=== PATIENT | male | born 1975 | race Caucasian/White ===

== ENCOUNTER 2018-05-18 09:21 | Inpatient (IN) | payer OTHER ==
[~2018-05-18] VITALS: Ht 180.3 cm; Wt 136.1 kg
[2018-05-18] MEDS ORDERED: FUROSEMIDE INJ 10 MG/ML 2 ML VIAL ONE (09:47)
[2018-05-18] MEDS ORDERED: DILTIAZEM HCL VIAL 5 ML ONE (09:47)
[2018-05-18] MEDS ORDERED: FUROSEMIDE INJ 10 MG/ML 4 ML VIAL ONE (09:47)
[2018-05-18] MEDS ORDERED: ASPIRIN 81 MG CHEW TAB PO STA (09:49)
[2018-05-18] MEDS ORDERED: NITROGLYCERIN 2% OINT 1 GM PKT TOP STA (09:49)
[2018-05-18] MEDS ORDERED: DILTIAZEM HCL 5 MG/ML 5 ML VIAL IV ONE (10:00)
[2018-05-18] MEDS ORDERED: ASPIRIN 81 MG CHEW TAB PO ONE ×2 (10:00→12:00)
[2018-05-18] MEDS ORDERED: FUROSEMIDE INJ 10 MG/ML 4 ML VIAL IV ONE (10:00)
[2018-05-18 10:04] LABS: BASOPHILS # (AUTO) 0.1 (0.0-0.1); BASOPHILS % 0.6 % (0.0-1.0); EOSINOPHILS # (AUTO) 0.2 (0.0-0.4); EOSINOPHILS % 2.1 % (0.0-6.0); HEMATOCRIT 40.6 % (38.2-49.6); HEMOGLOBIN 13.3 g/dL (14.0-18.0); LYMPHOCYTES # (AUTO) 1.8 (1.0-3.2); LYMPHOCYTES % 18.7 % (18.0-39.1); MEAN CORPUSCULAR HEMOGLOBIN 27.9 pg (28-32); MEAN CORPUSCULAR HGB CONC 32.8 g/dL (31-35); MEAN CORPUSCULAR VOLUME 85.3 fL (81-99); MONOCYTES # (AUTO) 0.6 (0.2-0.8); MONOCYTES % 6.6 % (4.4-11.3); NEUTROPHILS # (AUTO) 6.7 (2.1-6.9); NEUTROPHILS % 71.6 % (38.7-80.0); PLATELET COUNT 244 x10e3/uL (140-360); RED BLOOD COUNT 4.76 x10e6/uL (4.3-5.7); RED CELL DISTRIBUTION WIDTH 14.9 % (11.7-14.4)
[2018-05-18 10:07] LABS: INR 0.95; PROTHROMBIN TIME 13.6 seconds (11.9-14.5)
[2018-05-18 10:17] LABS: ALANINE AMINOTRANSFERASE 37 IU/L (0-55); ALBUMIN 3.7 g/dL (3.5-5.0); ALBUMIN/GLOBULIN RATIO 1.1 (0.8-2.0); ALKALINE PHOSPHATASE 57 IU/L (40-150); ANION GAP 15.9 mmol/L (8-16); BLOOD UREA NITROGEN 11 mg/dL (7-26); BUN/CREATININE RATIO 11 (6-25); CALCIUM 9.2 mg/dL (8.4-10.2); CARBON DIOXIDE 22 mmol/L (22-29); CHLORIDE 107 mmol/L (98-107); CREATINE KINASE 303 IU/L (30-200); CREATININE, SERUM 0.97 mg/dL (0.72-1.25); EST GLOMERULAR FILTRATION RATE > 60 ML/MIN (60-); GLUCOSE 106 mg/dL (74-118); POTASSIUM 3.9 mmol/L (3.5-5.1); SODIUM 141 mmol/L (136-145)
[2018-05-18 10:45] LABS: BILIRUBIN,URINE NEGATIVE (NEGATIVE); CLARITY,URINE SL CLOUDY (CLEAR); COLOR,URINE YELLOW (YELLOW); KETONES,URINE NEGATIVE (NEGATIVE); LEUKOCYTE ESTERASE ,URINE NEGATIVE (NEGATIVE); NITRITE,URINE NEGATIVE (NEGATIVE); PROTEIN,URINE DIPSTICK 1+ (NEGATIVE); URINE UROBILINOGEN 0.2 mg/dL (0.2 - 1)
[2018-05-18 11:03] LABS: EPITHELIAL CELLS,URINE RARE /LPF
[2018-05-18 11:04] LABS: HYALINE CASTS 0-1 (0-1)
[2018-05-18 11:11] LABS: FREE THYROXINE INDEX 1.8981 (1.4-3.8); THYROID STIMULATING HORMONE 5.772 uIU/mL (0.350-4.940)
[2018-05-18] MEDS ORDERED: LABETALOL HCL 5 MG/ML 20ML VIAL IV STA (11:48)
--- NOTE | 2018-05-18 12:37 | Diagnostic Imaging Report ---
PROCEDURE: A single AP view of the chest. COMPARISON: None. INDICATIONS: SHORTNESS OF BREATH FINDINGS: Lines/tubes: None. Lungs: Low lung volumes. There is an ovoid opacity at the right lung base. Mild patchy bibasilar opacities, likely atelectasis. No evidence of pulmonary edema. Pleura: There is no pleural effusion or pneumothorax. Heart and mediastinum: The cardiomediastinal silhouette is unremarkable. Bones: No acute bony abnormality. IMPRESSION: Ovoid opacity at the right lung base is indeterminate. While this may represent an unusual appearance of pericardial fat or consolidation, an underlying lung mass cannot be excluded by radiograph. A chest CT is suggested for further evaluation. Dictated by: BRUCE BENJAMIN M.D. on 05/18/2018 at 11:10 Electronically approved by: BRUCE BENJAMIN M.D. on 05/18/2018 at 11:10
[2018-05-18] MEDS ORDERED: IOPAMIDOL 370 MG/ML 200 ML INFUS..BTL INJ ONE (14:07)
[2018-05-18] MEDS ORDERED: SODIUM CHLORIDE 0.9% 50ML 50 ML ONE (14:07)
--- NOTE | 2018-05-18 14:45 | Diagnostic Imaging Report ---
EXAM: CT Chest WITH contrast 05/18/2018 12:24 PM INDICATION:Query mass COMPARISON: Chest radiograph 05/18/2018. TECHNIQUE: Chest was scanned utilizing a multidetector helical scanner from the lung apex through the level of the adrenal glands without administration of IV contrast. Coronal and sagittal reformations were obtained. Routine protocol was performed. IV CONTRAST: 100 mL of Isovue 370 RADIATION DOSE: Total DLP: 503 mGy*cm Estimated effective dose: (DLP x 0.014 x size factor) mSv COMPLICATIONS: None FINDINGS: LINES/ TUBES: None. LUNGS AND AIRWAYS: The central airways are patent. There are lower lung zone predominant bilateral ground glass opacities with areas of intralobular septal thickening. Scattered dependent atelectatic changes. Motion artifact limits evaluation for lung nodule. Scattered 2 to 3 mm subpleural nodular opacities. Mosaic attenuation of the lung bases. PLEURA: Small bilateral pleural effusions. HEART AND MEDIASTINUM: Corresponding to the mass noted on prior chest radiograph, there is a 6.7 x 5.3 x 5.4 cm (AP x TV x SI) homogeneous, well-circumscribed fluid attenuation round mass with peripheral calcification. The lesion is abutting the right aspect of the pericardium. The thyroid gland is partially obscured by streak artifact but otherwise unremarkable. No mediastinal, hilar or axillary lymphadenopathy. No evidence pericardial effusion. There is left atrial enlargement. Coronary atherosclerosis. UPPER ABDOMEN: Limited non-contrast views of the upper abdomen show no abnormality within the visualized liver, spleen, or adrenal glands. BONES AND SOFT TISSUES: No acute bony findings or suspicious lytic or blastic lesions. IMPRESSION: Simple appearing right pericardial cyst measuring up to 6.7 cm, which may be congenital or reflect sequela of prior pericarditis. Findings of mild pulmonary interstitial edema and small bilateral pleural effusions. Enlarged left atrium. Signed by: Dr. Susi Munguia MD on 05/18/2018 2:41 PM
[2018-05-18] MEDS: METOPROLOL TARTRATE 25 MG TAB PO SCH (16:22)
[2018-05-18 16:35] VITALS: BP 119/99
[2018-05-18 16:44] VITALS: BP 132/88
[2018-05-18 16:50] VITALS: BP 132/88
[2018-05-18 19:10] LABS: CREATINE KINASE MB 3.2 ng/mL (0-5.0)
[2018-05-18 20:00] VITALS: BP 135/96
[2018-05-19] VITALS (7 sets, daily range): BP systolic 121–136; BP diastolic 79–98
[2018-05-19 05:53] LABS: BASOPHILS # (AUTO) 0.1 (0.0-0.1); BASOPHILS % 0.5 % (0.0-1.0); EOSINOPHILS # (AUTO) 0.3 (0.0-0.4); EOSINOPHILS % 2.5 % (0.0-6.0); HEMATOCRIT 37.7 % (38.2-49.6); HEMOGLOBIN 12.5 g/dL (14.0-18.0); LYMPHOCYTES # (AUTO) 1.6 (1.0-3.2); LYMPHOCYTES % 14.9 % (18.0-39.1); MEAN CORPUSCULAR HEMOGLOBIN 27.9 pg (28-32); MEAN CORPUSCULAR HGB CONC 33.2 g/dL (31-35); MEAN CORPUSCULAR VOLUME 84.2 fL (81-99); MONOCYTES # (AUTO) 0.7 (0.2-0.8); MONOCYTES % 6.6 % (4.4-11.3); NEUTROPHILS # (AUTO) 7.8 (2.1-6.9); NEUTROPHILS % 75.1 % (38.7-80.0); PLATELET COUNT 220 x10e3/uL (140-360); RED BLOOD COUNT 4.48 x10e6/uL (4.3-5.7)
[2018-05-19 06:15] LABS: ALANINE AMINOTRANSFERASE 33 IU/L (0-55); ALBUMIN 3.4 g/dL (3.5-5.0); ALBUMIN/GLOBULIN RATIO 1.2 (0.8-2.0); ALKALINE PHOSPHATASE 53 IU/L (40-150); ANION GAP 12.3 mmol/L (8-16); BLOOD UREA NITROGEN 12 mg/dL (7-26); BUN/CREATININE RATIO 13 (6-25); CALCIUM 9.3 mg/dL (8.4-10.2); CARBON DIOXIDE 31 mmol/L (22-29); CHLORIDE 104 mmol/L (98-107); CHOL/HDL RATIO 5.1 (3.9-4.7); CHOLESTEROL 163 MD/DL (0-199); CREATINE KINASE 186 IU/L (30-200); EST GLOMERULAR FILTRATION RATE > 60 ML/MIN (60-); GLUCOSE 97 mg/dL (74-118); HDL CHOLESTEROL 32 MG/DL (40-60); LDL CHOLESTEROL 109 MG/DL (60-130); POTASSIUM 3.3 mmol/L (3.5-5.1); SODIUM 144 mmol/L (136-145); TRIGLYCERIDES 111 MG/DL (0-149)
[2018-05-19] MEDS ORDERED: POTASSIUM CHLORIDE 20 MEQ TAB CR PO STA (07:18)
[2018-05-19] MEDS: FAMOTIDINE 20 MG TAB PO SCH ×2 (08:53→16:36)
[2018-05-19] MEDS: ASPIRIN 81 MG ENTERIC COATED PO SCH (08:53)
[2018-05-19] MEDS: METOPROLOL TARTRATE 25 MG TAB PO SCH ×2 (08:53→16:37)
[2018-05-19] MEDS ORDERED: FUROSEMIDE INJ 10 MG/ML 4 ML VIAL IV SCH (09:00)
[2018-05-19] MEDS: LISINOPRIL 10 MG TAB PO SCH (09:20)
--- NOTE | 2018-05-19 10:48 | History and Physical ---
PRIMARY CARE PHYSICIAN: None. CHIEF COMPLAINT: Shortness of breath. HISTORY OF PRESENT ILLNESS: This is a 43-year-old man with a family history of congestive heart failure, but no personal history of heart failure, now developing leg swelling. He states that he is now developing shortness of breath for the past 3 weeks. He denies any chest pain. He does have some dizziness with walking and bending. 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 He admits to left leg swelling for the past 2 years and right leg swelling for the last 3 weeks. Here, he was found to have atrial fibrillation with rapid ventricular response, mild acute rhabdomyolysis, bilateral pleural effusions, and a left ventricular ejection fraction of 15-20%. He is admitted for further evaluation and management. PAST MEDICAL HISTORY: Hypertension. PAST SURGICAL HISTORY: None. ALLERGIES: PER ELECTRONIC MEDICAL RECORD. FAMILY HISTORY: Congestive heart failure. SOCIAL HISTORY: Patient is , has 3 children. No alcohol, illicit, or cigarette. 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 MEDICATIONS: Per electronic medical record. REVIEW OF SYSTEMS: Denies any fevers, chills, sweats, nausea, vomiting, diarrhea, headache, back pain, or vision changes. Denies any leg pain. PHYSICAL EXAMINATION VITAL SIGNS: Have been reviewed. GENERAL: A tired-appearing man, resting in bed. HEENT: Anicteric. Pupils react to light. No oral lesions. CARDIOVASCULAR: Normal S1, S2. Irregular rhythm. LUNGS: Moderate breath sounds, slightly reduced at the bases. ABDOMEN: Soft, nontender, nondistended. EXTREMITIES: With 2+ leg edema bilaterally. SKIN: Dry. PSYCHIATRIC: Flat affect. NEUROLOGIC: Alert and oriented x3. Moves all extremities. LABS: Reviewed. ASSESSMENT: A 43-year-old man with 1. Atrial fibrillation with rapid ventricular response. 2. Bilateral pleural effusion. 3. Pulmonary edema. 4. Acute systolic congestive heart failure with left ventricular ejection fraction of 15-20%. 5. Peripheral edema. 6. Morbid obesity. 7. Acute rhabdomyolysis. 8. Hypokalemia. 9. Right pericardial cyst. 10. Subclinical hypothyroidism. PLAN 1. Continue Lasix. 2. Replace potassium. 3. Cardiology evaluation, will need left heart catheterization at some point to evaluate for coronary artery disease in the setting of severe systolic congestive heart failure. 4. Rate control. 5. Consider anticoagulation in the setting of AFib, will defer to cardiology. 6. Continue diuresis and replacement of potassium. 7. Screen for diabetes and obtain a lipid panel. 8. Start Lovenox and Pepcid for prophylaxis. 9. Disposition, follow up cardiology recommendations. Job#: [id number] RDORIGO
[2018-05-19] MEDS: FUROSEMIDE INJ 10 MG/ML 4 ML VIAL IV SCH (16:36)
[2018-05-19] MEDS: POTASSIUM CHLORIDE 20 MEQ TAB CR PO SCH (16:37)
[2018-05-19] MEDS ORDERED: ENOXAPARIN SOD INJ 40 MG/0.4 ML SYR SC SCH (17:00)
--- NOTE | 2018-05-19 17:59 | Consultation ---
DATE OF CONSULTATION: May 19, 2018 REQUESTING PHYSICIAN: Dr. Talavera. REASON FOR CONSULTATION: CHF. HISTORY OF PRESENT ILLNESS: Mr. Christensen is a 43-year-old gentleman with past medical history as listed below. Apparently, he has been getting short of shortness for the last 2 weeks with some leg swelling. I think the shortness of breath might be going on even before that, but pretty much noticed it about 2 weeks back. He walks less than half a block, he gets short-winded. Before that, he was able to do whatever he wanted to. He states that he has some vague discomfort in his lower sternal region. He was noted to be in atrial fibrillation with rapid ventricular rate and was admitted to the hospital. He denies any abdominal pain, vomiting, or diarrhea. Reportedly, his mother had atrial fibrillation. REVIEW OF SYSTEMS CONSTITUTIONAL: He has some fatigue and weakness. HEENT: No headache, blurring of vision, seizure, or syncope. CARDIOVASCULAR: Chest discomfort, has dyspnea, has leg edema, and some orthopnea. RESPIRATORY: No cough, fever, or expectoration. GI: No abdominal pain, vomiting, or diarrhea. : No dysuria, frequency, or incontinence. ALLERGIES: PENICILLIN. MEDICATIONS: See list. PAST MEDICAL HISTORY: History of hypertension. SOCIAL HISTORY: Does not smoke or drink. FAMILY HISTORY: His mother has atrial fibrillation. His grandfather had strokes. PHYSICAL EXAMINATION GENERAL: Obese gentleman, awake and alert, not in any obvious distress. VITAL SIGNS: Heart rate 109, blood pressure 136/96, respiratory rate 18, and temperature 97.5. HEENT: Atraumatic. NECK: No JVD, bruits, thyromegaly, or lymphadenopathy. CARDIOVASCULAR: First and second heart sounds heard. No murmurs, rubs, or gallops appreciated. CHEST: Decreased air entry at the bases. No adventitious sounds appreciated. ABDOMEN: Obese, nontender. EXTREMITIES: He has 2 to 3+ leg edema. LABS: EKG shows atrial fibrillation, 137 beats per minute, normal axis. He has incomplete right bundle branch block, nonspecific ST-T changes. Sodium is 144, potassium 3.3, chloride is 104, bicarb is 31, BUN is 12, creatinine 0.9. Hemoglobin is 12.5, hematocrit 37.7, platelets 220, white count is 10.4. IMPRESSION 1. Atrial fibrillation with rapid ventricular rate. 2. Congestive heart failure. 3. Obesity. 4. Hypertension. PLAN 1. Continue with IV diuresis. 2. Patient has been started on metoprolol. We will increase his dose. 3. Patient is on Lovenox, increase 1 mg per kilo q.12. 4. Echocardiogram shows severe LV dysfunction. 5. Continue the THIAGO inhibitors and beta blockers. 6. Discussed with patient about further cardiac workup including cardiac catheterization. He has been explained of the procedure, risks, benefits, complications, and alternatives. He understands and agrees to it. Proceed with it next week. 7. Place him on fluid restriction, I's and O's, low salt diet. 8. Patient has been counseled about diet and activity. 9. Further management depending on clinical course. 10. Discussed my impression and plan of management with the patient and he understands it. As always, I appreciate and thank you very much for your referrals. Job#: [id number] ANNY
[2018-05-20] VITALS (7 sets, daily range): BP systolic 121–146; BP diastolic 76–93
[2018-05-20 06:17] LABS: BASOPHILS # (AUTO) 0.1 (0.0-0.1); BASOPHILS % 0.7 % (0.0-1.0); EOSINOPHILS # (AUTO) 0.3 (0.0-0.4); EOSINOPHILS % 3.4 % (0.0-6.0); HEMATOCRIT 37.5 % (38.2-49.6); HEMOGLOBIN 12.4 g/dL (14.0-18.0); LYMPHOCYTES # (AUTO) 1.7 (1.0-3.2); LYMPHOCYTES % 21.3 % (18.0-39.1); MEAN CORPUSCULAR HEMOGLOBIN 27.9 pg (28-32); MEAN CORPUSCULAR HGB CONC 33.1 g/dL (31-35); MEAN CORPUSCULAR VOLUME 84.3 fL (81-99); MONOCYTES # (AUTO) 0.6 (0.2-0.8); MONOCYTES % 7.6 % (4.4-11.3); NEUTROPHILS # (AUTO) 5.5 (2.1-6.9); NEUTROPHILS % 66.8 % (38.7-80.0); PLATELET COUNT 207 x10e3/uL (140-360); RED BLOOD COUNT 4.45 x10e6/uL (4.3-5.7); RED CELL DISTRIBUTION WIDTH 14.9 % (11.7-14.4)
[2018-05-20 07:02] LABS: ANION GAP 11.5 mmol/L (8-16); BLOOD UREA NITROGEN 16 mg/dL (7-26); BUN/CREATININE RATIO 19 (6-25); CALCIUM 9.3 mg/dL (8.4-10.2); CARBON DIOXIDE 30 mmol/L (22-29); CHLORIDE 103 mmol/L (98-107); CREATININE, SERUM 0.83 mg/dL (0.72-1.25); EST GLOMERULAR FILTRATION RATE > 60 ML/MIN (60-); GLUCOSE 88 mg/dL (74-118); POTASSIUM 3.5 mmol/L (3.5-5.1); SODIUM 141 mmol/L (136-145)
[2018-05-20] MEDS: POTASSIUM CHLORIDE 20 MEQ TAB CR PO SCH ×2 (08:00→16:43)
[2018-05-20] MEDS: ASPIRIN 81 MG ENTERIC COATED PO SCH (08:00)
[2018-05-20] MEDS: FUROSEMIDE INJ 10 MG/ML 4 ML VIAL IV SCH ×2 (08:00→16:43)
[2018-05-20] MEDS: FAMOTIDINE 20 MG TAB PO SCH ×2 (08:00→16:43)
[2018-05-20] MEDS: METOPROLOL TARTRATE 25 MG TAB PO SCH ×2 (08:01→16:43)
[2018-05-20] MEDS: LISINOPRIL 10 MG TAB PO SCH (08:01)
[2018-05-20] MEDS ORDERED: POTASSIUM CHLORIDE 20 MEQ TAB CR PO NR ×2 (09:00→10:15)
[2018-05-20] MEDS: ENOXAPARIN SODIUM INJ 100 MG/ML SYR SC SCH ×2 (10:20→22:08)
--- NOTE | 2018-05-20 22:42 | Progress Note ---
DATE: May 20, 2018 TIME OF SERVICE: 13:15. OVERNIGHT: No acute events. REVIEW OF SYSTEMS: Patient denies chest pain or dizziness. Does report fatigue, slight weakness, some dyspnea with exertion and orthopnea. Denies nausea, vomiting, diarrhea, constipation, fever, chills, sweats, or leg pain. Denies headache, blurry vision, or tinnitus. PHYSICAL EXAMINATION VITAL SIGNS: T 97.3, P 86, R 20, BP 135/88, SpO2 95% on room air. GENERAL APPEARANCE: This is a tired-appearing man, resting in bed. HEENT: Normocephalic, PERRLA, normal right/left ear, nares patent, oral mucosa moist and intact. Trachea midline without JVD visible. CV: S1 and S2 appreciated without clicks, murmurs, or rubs and irregular rates. LUNGS: Bilateral breath sounds were clear to auscultation at the bases with fair excursion. Exam limited due to difficulty in respiratory depth for patient. ABDOMEN: Soft, nontender, and nondistended. EXTREMITIES: Bilateral lower extremity with 2+ edema from pretibial area distal. SKIN: Dry. PSYCHIATRIC: Flat affect. NEUROLOGIC: A and O x3. Moves all extremities. No gross motor defects present. LABS: WBC is 8.18, H and H 12.4 and 37.5 with platelets 207. NA 141, K 3.5, CL 103, CO2 30, gap 11.5, BUN 16, estimated GFR greater than 60. Of note, TSH was elevated with low normal free T. ASSESSMENT AND PLAN: This is a 43-year-old man with; 1. Atrial fibrillation with rapid ventricular response, rate controlled with metoprolol titrated services. 2. Bilateral pleural effusion. Continue IV diuresis. 3. Pulmonary edema. Continue Lasix with replacement of potassium. 4. Acute systolic congestive heart failure with left ventricular ejection fraction 15 to 20%. Continue diuresis. 5. Peripheral edema. 6. Morbid obesity. Outpatient counseling. 7. Acute rhabdomyolysis, resolving. 8. Hyperkalemia. Follow volume in the morning and replace as needed. 9. Right pericardial cysts. 10. Subclinical hypothyroidism. Patient reported upon questioning this day he was treated prior for hypothyroidism with p.o. medications. Prefers to follow treatment with outpatient PCP. 11. Prophylaxis. Lovenox and Pepcid. DISPOSITION: A.m. cardiac catheterization pending. Continue I and O, low sodium diet. Medication titration per cardiology. Follow up a.m. values. Refer for outpatient treatment for subclinical hypothyroidism. Hemoglobin A1c reviewed at 5.7 with Tg 111, cholesterol 163, LDL at 109. Dictated by: Ree Ryan NP Job#: [id number] CARLOS
[2018-05-21] VITALS (7 sets, daily range): BP systolic 119–142; BP diastolic 79–94
[2018-05-21 06:49] LABS: ANION GAP 10.7 mmol/L (8-16); BLOOD UREA NITROGEN 17 mg/dL (7-26); BUN/CREATININE RATIO 19 (6-25); CALCIUM 8.1 mg/dL (8.4-10.2); CARBON DIOXIDE 29 mmol/L (22-29); CHLORIDE 100 mmol/L (98-107); CREATININE, SERUM 0.91 mg/dL (0.72-1.25); EST GLOMERULAR FILTRATION RATE > 60 ML/MIN (60-); GLUCOSE 91 mg/dL (74-118); POTASSIUM 3.7 mmol/L (3.5-5.1); SODIUM 136 mmol/L (136-145)
[2018-05-21 06:51] LABS: INR 0.98; PROTHROMBIN TIME 13.9 seconds (11.9-14.5)
[2018-05-21] MEDS ORDERED: IOPAMIDOL 370 MG/ML 200 ML INFUS..BTL INJ ONE (07:00)
[2018-05-21] MEDS ORDERED: HEPARIN SOD/SOD CHLORIDE 2,000 ML ONE (07:00)
[2018-05-21] MEDS ORDERED: SODIUM CHLORIDE 0.9% 1000ML 1,000 ML ONE (07:00)
[2018-05-21] MEDS ORDERED: LIDOCAINE HCL 2% LOCAL 20 ML VIAL ONE (07:00)
[2018-05-21] MEDS ORDERED: MIDAZOLAM HCL 2 MG/2 ML VIAL ONE (07:14)
[2018-05-21] MEDS ORDERED: FENTANYL CITRATE/PF 100MCG/2 ML INJ ONE (07:14)
[2018-05-21 09:17] LABS: BASOPHILS # (AUTO) 0.1 (0.0-0.1); BASOPHILS % 0.8 % (0.0-1.0); EOSINOPHILS # (AUTO) 0.3 (0.0-0.4); EOSINOPHILS % 3.5 % (0.0-6.0); HEMOGLOBIN 13.6 g/dL (14.0-18.0); LYMPHOCYTES % 22.7 % (18.0-39.1); MEAN CORPUSCULAR HEMOGLOBIN 27.5 pg (28-32); MEAN CORPUSCULAR HGB CONC 32.4 g/dL (31-35); MONOCYTES # (AUTO) 0.6 (0.2-0.8); MONOCYTES % 6.6 % (4.4-11.3); NEUTROPHILS # (AUTO) 5.7 (2.1-6.9); NEUTROPHILS % 66.2 % (38.7-80.0); PLATELET COUNT 219 x10e3/uL (140-360); RED BLOOD COUNT 4.94 x10e6/uL (4.3-5.7); RED CELL DISTRIBUTION WIDTH 14.9 % (11.7-14.4)
[2018-05-21] MEDS: FUROSEMIDE INJ 10 MG/ML 4 ML VIAL IV SCH ×2 (10:27→16:12)
[2018-05-21] MEDS: POTASSIUM CHLORIDE 20 MEQ TAB CR PO SCH ×2 (10:27→16:12)
[2018-05-21] MEDS: FAMOTIDINE 20 MG TAB PO SCH ×2 (10:27→16:12)
[2018-05-21] MEDS: ASPIRIN 81 MG ENTERIC COATED PO SCH (10:27)
[2018-05-21] MEDS: METOPROLOL TARTRATE 25 MG TAB PO SCH ×2 (10:28→16:13)
[2018-05-21] MEDS: LISINOPRIL 10 MG TAB PO SCH (10:28)
[2018-05-21] MEDS: ENOXAPARIN SODIUM INJ 100 MG/ML SYR SC SCH ×2 (12:33→22:00)
[2018-05-22] VITALS: BP 130/73
[2018-05-22 04:00] VITALS: BP 132/85
[2018-05-22] MEDS ORDERED: LISINOPRIL10 MG PO (05:06)
[2018-05-22] MEDS ORDERED: FAMOTIDINE20 MG PO (05:06)
[2018-05-22] MEDS ORDERED: ASPIRIN EC81 MG PO (05:06)
[2018-05-22] MEDS ORDERED: FUROSEMIDE40 MG PO (05:06)
[2018-05-22] MEDS ORDERED: XARELTO20 MG PEG (05:06)
[2018-05-22] MEDS ORDERED: LOPRESSOR25 MG PO (05:06)
[2018-05-22 08:01] VITALS: BP 126/77
[2018-05-22 08:18] VITALS: BP 126/77
[2018-05-22] MEDS: ASPIRIN 81 MG ENTERIC COATED PO SCH (08:56)
[2018-05-22] MEDS: FAMOTIDINE 20 MG TAB PO SCH ×2 (08:56→16:52)
[2018-05-22] MEDS: FUROSEMIDE INJ 10 MG/ML 4 ML VIAL IV SCH ×2 (08:56→16:52)
[2018-05-22] MEDS: POTASSIUM CHLORIDE 20 MEQ TAB CR PO SCH ×2 (08:56→16:52)
[2018-05-22] MEDS: METOPROLOL TARTRATE 25 MG TAB PO SCH ×2 (08:57→16:53)
[2018-05-22] MEDS: LISINOPRIL 10 MG TAB PO SCH (08:57)
[2018-05-22 11:44] VITALS: BP 114/80
[2018-05-22] MEDS: ENOXAPARIN SODIUM INJ 100 MG/ML SYR SC SCH (12:00)
[2018-05-22 16:34] VITALS: BP 120/81
[2018-05-22] MEDS ORDERED: RIVAROXABAN 20 MG TABLET PO SCH (17:00)
--- NOTE | 2018-05-22 20:41 | Progress Note ---
DATE: May 21, 2018 TIME: 8:30 a.m. OVERNIGHT: No events. REVIEW OF SYSTEMS: Denies any dizziness, chest pain. PHYSICAL EXAMINATION: VITAL SIGNS: Reviewed. GENERAL APPEARANCE: Tired-appearing man resting in bed. HEENT: Anicteric. CARDIOVASCULAR: Normal S1 and S2. LUNGS: Moderate breath sounds. ABDOMEN: Soft, nontender, nondistended. EXTREMITIES: He has 1+ leg edema. SKIN: Dry. PSYCHIATRIC: Flat affect. LABS: Reviewed. MEDICATIONS: Reviewed. ASSESSMENT: A 43-year-old man. 1. Atrial fibrillation with rapid ventricular response. 2. Bilateral pleural effusions. 3. Pulmonary edema. 4. Acute systolic congestive heart failure with left ventricular ejection fraction 15% to 20%. 5. Morbid obesity. 6. Acute rhabdomyolysis. 7. Hypokalemia. 8. Right pericardial cyst. 9. Subclinical hypothyroidism. PLAN: 1. Continue Lasix. 2. Continue medical treatment. 3. Heart rate is being controlled. 4. Hemoglobin A1c 5.7, LDL 109. 5. Follow up left heart catheterization. Job#: [id number]
--- NOTE | 2018-05-22 21:00 | Discharge Summary ---
PRINCIPAL DIAGNOSES 1. Atrial fibrillation with rapid ventricular response. 2. Bilateral pleural effusions. 3. Systolic congestive heart failure associated with hypertension. 4. Negative heart catheterization. 5. Peripheral edema. 6. Morbid obesity. 7. Acute rhabdomyolysis. 8. Diabetes. 9. Hypokalemia. 10. Pulmonary edema. SECONDARY DIAGNOSIS: Hypertension. CHIEF COMPLAINT AND HISTORY OF PRESENT ILLNESS: Please refer to H and P. HOSPITAL COURSE: The patient was found to have acute systolic congestive heart failure with left ventricular ejection fraction of 15% to 20%. Underwent left heart catheterization, reported as being negative. Had atrial fibrillation with rapid ventricular response, heart rate controlled on medication regimen. Had bilateral pleural effusion and peripheral edema, improved on diuretics. Had acute rhabdomyolysis which also improved. He had morbid obesity and hypokalemia. The patient had some clinical hypothyroidism and needs retesting in 8 weeks. The patient is doing well. He will be discharged home with anticoagulation in the form of Xarelto. He needs to follow up with me in 1 week and follow up with cardiology in 2 weeks. The patient will be considered for AICD. He will need to be tested now by 2-D echocardiogram. CONDITION ON DISCHARGE: Stable. DISCHARGE LOCATION: Home. MEME PANDYA MD Job#: [id number]
--- NOTE | 2018-05-24 18:09 | Operative Report ---
DATE OF PROCEDURE: May 21, 2018 PROCEDURES PERFORMED: 1. Left heart catheterization. 2. Selective coronary angiogram. 3. LV gram. DESCRIPTION OF PROCEDURE: After informed consent, patient was brought to the cardiac catheterization laboratory and placed on the table. Both groins were painted and draped in a sterile fashion. Lidocaine was injected in the right groin for local anesthesia. Right femoral artery was accessed by Seldinger technique and a 5-Cameroonian sheath was placed in the right femoral artery. Left main artery was cannulated using a JL4 5-Cameroonian catheter. Coronary angiogram performed. Images obtained in multiple views. Right coronary artery was cannulated using a 3DRC 5-Cameroonian catheter. Coronary angiogram was performed. Images obtained in multiple views. LV-gram was performed using a pigtail catheter. Patient tolerated the procedure without any complications. REPORT: LEFT MAIN: Normal caliber and is free of disease. LEFT ANTERIOR DESCENDING: Normal caliber. Luminal irregularities. LEFT CIRCUMFLEX: Normal caliber. There are luminal irregularities. RIGHT CORONARY ARTERY: Normal caliber. Dominant vessel and no significant stenosis. LV-GRAM: Diffuse hyperkinesis of the left ventricle is noted. The overall ejection fraction is 20%. PLAN: LifeVest. Job#: [id number]
--- OUTSIDE RECORDS SUMMARY | 2018-05-29 11:11 | XMS REPORT ---
Author Author [facility] Address Unknown Phone Unavailable Care Team Providers Care Radio Operator Name Role Phone MEME PANDYA Unavailable Unavailable Problems This patient has no known problems. Allergies, Adverse Reactions, Alerts This patient has no known allergies or adverse reactions. Medications This patient has no known medications. Results Test Description Test Time Test Comments Text Results Atomic Results Result Comments CT CHEST W 2018-05-18 14:19:00 [place] [address] Patient Name: GENO PARMAR MR #: [id number] : 1975 Age/Sex: 43/M Req #: [id number] Adm Physician: MEME PANDYA MD Ordered by: STANLEY DUARTE MD Report #: [id number] Location: [facility] Room/Bed: [place] [address] Procedure: [id number] CT/CT CHEST W Exam Date: 05/18/18 Exam Time: 1340 REPORT STATUS: Signed EXAM: CT Chest WITH contrast 05/18/2018 12:24 PM INDICATION:Query mass COMPARISON: Chest radiograph 05/18/2018. TECHNIQUE: Chest was scanned utilizing a multidetector helical scanner from the lung apex through the level of the adrenal glands without administration of IV contrast. Coronal and sagittal reformations were obtained. Routine protocol was performed. IV CONTRAST: 100 mL of Isovue 370 RADIATION DOSE: Total DLP: 503 mGy*cm Estimated effective dose: (DLP x 0.014 x size factor) mSv COMPLICATIONS: None FINDINGS: LINES/ TUBES: None. LUNGS AND AIRWAYS: The central airways are patent. There are lower lung zone predominant bilateral ground glass opacities with areas of intralobular septal thickening. Scattered dependent atelectatic changes. Motion artifact limits evaluation for lung nodule. Scattered 2 to 3 mm subpleural nodular opacities. Mosaic attenuation of the lung bases. PLEURA: Small bilateral pleural effusions. HEART AND MEDIASTINUM: Corresponding to the mass noted on prior chest radiograph, there is a 6.7 x 5.3 x 5.4 cm (AP x TV x SI) homogeneous, well-circumscribed fluid attenuation round mass with peripheral calcification. The lesion is abutting the right aspect of the pericardium. The thyroid gland is partially obscured by streak artifact but otherwise unremarkable. No mediastinal, hilar or axillary lymphadenopathy. No evidence pericardial effusion. There is left atrial enlargement. Coronary atherosclerosis. UPPER ABDOMEN: Limited non- contrast views of the upper abdomen show no abnormality within the visualized liver, spleen, or adrenal glands. BONES AND SOFT TISSUES: No acute bony findings or suspicious lytic or blastic lesions. IMPRESSION: Simple appearing right pericardial cyst measuring up to 6.7 cm, which may be congenital or reflect sequela of prior pericarditis. Findings of mild pulmonary interstitial edema and small bilateral pleural effusions. Enlarged left atrium. Signed by: Dr. Bruce Benjamin MD on 05/18/2018 2:41 PM Dictated By: BRUCE BENJAMIN MD [id number] Transcribed By: TORSTEN on 05/18/18 1441 COPY TO: STANLEY DUARTE MD CHEST SINGLE (PORTABLE) 2018-05-18 11:10:00 [place] [address] Patient Name: GENO PARMAR MR #: [id number] : 1975 Age/Sex: 43/M Req #: [id number] Adm Physician: Ordered by: STANLEY DUARTE MD Report #: [id number] Location: ER Room/Bed: Procedure: [id number] DX/CHEST SINGLE (PORTABLE) Exam Date: 05/18/18 Exam Time: 1000 REPORT STATUS: Signed PROCEDURE: A single AP view of the chest. COMPARISON: None. INDICATIONS: SHORTNESS OF BREATH FINDINGS: Lines/tubes: None. Lungs: Low lung volumes. There is an ovoid opacity at the right lung base. Mild patchy bibasilar opacities, likely atelectasis. No evidence of pulmonary edema. Pleura: There is no pleural effusion or pneumothorax. Heart and mediastinum: The cardiomediastinal silhouette is unremarkable. Bones: No acute bony abnormality. IMPRESSION: Ovoid opacity at the right lung base is indeterminate. While this may represent an unusual appearance of pericardial fat or consolidation, an underlying lung mass cannot be excluded by radiograph. A chest CT is suggested for further evaluation. Dictated by: BRUCE BENJAMIN M.D. on 05/18/2018 at 11:10 Electronically approved by: BRUCE BENJAMIN M.D. on 05/18/2018 at 11:10 Dictated By: BRUCE BENJAMIN MD 1110 Transcribed By: SYLVIE on 05/18/18 1110 COPY TO: STANLEY DUARTE MD
== END 2018-05-22 18:30 | disposition home or self-care (01) | DRG 286 ==
LOC: ER 09:21 → ERHOLD 13:17 → MED/SURG3 15:20
PROVIDERS: ADMIT Internal Medicine; ATTEND Internal Medicine
PROC: 4A023N7 Measurement of Cardiac Sampling and Pressure, Left Heart, Percutaneous Approach (ICD-10-PCS; principal; 2018-05-21)
PROC: B2111ZZ Fluoroscopy of Multiple Coronary Arteries using Low Osmolar Contrast (ICD-10-PCS; 2018-05-21)
PROC: B2151ZZ Fluoroscopy of Left Heart using Low Osmolar Contrast (ICD-10-PCS; 2018-05-21)
DX: I11.0 Hypertensive heart disease with heart failure (principal); I50.21 Acute systolic (congestive) heart failure; M62.82 Rhabdomyolysis; Z68.41 Body mass index [BMI] 40.0-44.9, adult; I48.91 Unspecified atrial fibrillation; E66.01 Morbid (severe) obesity due to excess calories; E03.9 Hypothyroidism, unspecified; E11.9 Type 2 diabetes mellitus without complications; E87.6 Hypokalemia; Q24.8 Other specified congenital malformations of heart; Z28.21 Immunization not carried out because of patient refusal; Z79.01 Long term (current) use of anticoagulants; Z79.82 Long term (current) use of aspirin
CPT/HCPCS: 36415; 71045; 71260; 80048; 80053; 80061; 81001; 82550; 82553; 83036; 83880; 84436; 84443; 84479; 84484; 85025; 85610; 85730; 93005; 93306; 93458; 96372; 99285; J1650; J1940; J2001; J2250; J7030; Q9967

== ENCOUNTER 2018-12-31 15:12 | Observation (INO) | payer OTHER ==
[~2018-12-31] VITALS: Ht 177.8 cm; Wt 142.4 kg
[~2018-12-31 15:12] MED LIST: ASPIRIN EC81 MG PO; FAMOTIDINE20 MG PO; FUROSEMIDE40 MG PO; LISINOPRIL10 MG PO; LOPRESSOR25 MG PO; XARELTO20 MG PEG
[2018-12-31 16:11] LABS: BASOPHILS # (AUTO) 0.1 (0.0-0.1); BASOPHILS % 0.5 % (0.0-1.0); EOSINOPHILS # (AUTO) 0.3 (0.0-0.4); EOSINOPHILS % 2.5 % (0.0-6.0); HEMATOCRIT 39.4 % (38.2-49.6); HEMOGLOBIN 13.6 g/dL (14.0-18.0); LYMPHOCYTES # (AUTO) 1.9 (1.0-3.2); LYMPHOCYTES % 18.1 % (18.0-39.1); MEAN CORPUSCULAR HEMOGLOBIN 29.3 pg (28-32); MEAN CORPUSCULAR HGB CONC 34.5 g/dL (31-35); MEAN CORPUSCULAR VOLUME 84.9 fL (81-99); MONOCYTES # (AUTO) 0.7 (0.2-0.8); MONOCYTES % 6.3 % (4.4-11.3); NEUTROPHILS # (AUTO) 7.6 (2.1-6.9); NEUTROPHILS % 72.2 % (38.7-80.0); PLATELET COUNT 237 x10e3/uL (140-360); RED BLOOD COUNT 4.64 x10e6/uL (4.3-5.7); RED CELL DISTRIBUTION WIDTH 13.6 % (11.7-14.4)
[2018-12-31 16:17] LABS: BILIRUBIN,URINE NEGATIVE (NEGATIVE); CLARITY,URINE CLEAR (CLEAR); COLOR,URINE COLORLESS (YELLOW); KETONES,URINE NEGATIVE (NEGATIVE); LEUKOCYTE ESTERASE ,URINE NEGATIVE (NEGATIVE); NITRITE,URINE NEGATIVE (NEGATIVE); PROTEIN,URINE DIPSTICK NEGATIVE (NEGATIVE); URINE UROBILINOGEN 0.2 mg/dL (0.2 - 1)
[2018-12-31 16:22] LABS: INR 1.4; PROTHROMBIN TIME 17.7 seconds (11.9-14.5)
[2018-12-31 16:24] LABS: BACTERIA,URINE FEW /HPF; EPITHELIAL CELLS,URINE FEW /LPF; WBC,URINE (MAN) 0-5 /HPF (0-5)
[2018-12-31 16:29] LABS: ALANINE AMINOTRANSFERASE 29 IU/L (0-55); ALBUMIN 3.7 g/dL (3.5-5.0); ALBUMIN/GLOBULIN RATIO 1.1 (0.8-2.0); ALKALINE PHOSPHATASE 58 IU/L (40-150); ANION GAP 11.3 mmol/L (8-16); BLOOD UREA NITROGEN 14 mg/dL (7-26); BUN/CREATININE RATIO 14 (6-25); CALCIUM 9.3 mg/dL (8.4-10.2); CARBON DIOXIDE 29 mmol/L (22-29); CHLORIDE 100 mmol/L (98-107); CREATINE KINASE 269 IU/L (30-200); CREATININE, SERUM 0.98 mg/dL (0.72-1.25); EST GLOMERULAR FILTRATION RATE > 60 ML/MIN (60-); GLUCOSE 135 mg/dL (74-118); POTASSIUM 3.3 mmol/L (3.5-5.1); SODIUM 137 mmol/L (136-145)
--- NOTE | 2018-12-31 16:41 | Diagnostic Imaging Report ---
EXAMINATION: CHEST SINGLE (PORTABLE) INDICATION: Chest pain. COMPARISON: Chest radiograph 05/18/[address] chest 05/18/2018. FINDINGS: TUBES and LINES: None. LUNGS: Lungs are moderately inflated. There is no evidence of pneumonia or pulmonary edema. PLEURA: No pleural effusion or pneumothorax. HEART AND MEDIASTINUM: The cardiomediastinal silhouette is unchanged. Opacity abutting the right heart border corresponds to pericardial cyst, as noted on CT chest from 05/18/2018. BONES AND SOFT TISSUES: No acute osseous abnormality. UPPER ABDOMEN: No free air under the diaphragm. IMPRESSION: No acute radiographic abnormality. Signed by: Dr. Susi Munguia MD on 12/31/2018 4:37 PM
[2018-12-31] MEDS ORDERED: SODIUM CHLORIDE 0.9% 1000ML 1,000 ML IV SCH (17:00)
[2018-12-31] MEDS ORDERED: ONDANSETRON HCL INJ 2MG/ML 2ML 2 MG/ML VIAL IV PRN (18:15)
[2018-12-31] MEDS ORDERED: NITROGLYCERIN 0.4 MG SUBL SL PRN (18:15)
[2018-12-31] MEDS: FAMOTIDINE 20 MG TAB PO SCH (18:33)
[2018-12-31] MEDS: NITROGLYCERIN 2% OINT 1 GM PKT TOP SCH (18:37)
[2018-12-31] MEDS: SODIUM CHLORIDE 0.9% 1000ML 1,000 ML IV SCH (18:37)
[2018-12-31 19:26] VITALS: BP 115/71
--- NOTE | 2018-12-31 19:40 | NUR ---
Patient arrived to the unit from ER for hypertension, chest pain, and dizziness. Patient is AOx4, present with no chest pain. Bed is set low, side rails up x2, non-skid footwear is on and call light is within reach. Monitor patient for chest pain and BP.
[2018-12-31 19:47] VITALS: BP 115/71
[2018-12-31 20:05] VITALS: BP 115/71
[2018-12-31 20:19] LABS: CREATINE KINASE MB 5.3 ng/mL (0-5.0)
[2018-12-31 23:32] VITALS: BP 115/65
[2019-01-01] VITALS (7 sets, daily range): BP systolic 109–130; BP diastolic 57–81
[2019-01-01 03:26] LABS: CREATINE KINASE MB 3.9 ng/mL (0-5.0)
[2019-01-01 05:36] LABS: BASOPHILS % 0.5 % (0.0-1.0); EOSINOPHILS # (AUTO) 0.3 (0.0-0.4); EOSINOPHILS % 3.4 % (0.0-6.0); HEMATOCRIT 38.6 % (38.2-49.6); HEMOGLOBIN 12.6 g/dL (14.0-18.0); LYMPHOCYTES # (AUTO) 1.9 (1.0-3.2); LYMPHOCYTES % 23.2 % (18.0-39.1); MEAN CORPUSCULAR HEMOGLOBIN 28.6 pg (28-32); MEAN CORPUSCULAR HGB CONC 32.6 g/dL (31-35); MEAN CORPUSCULAR VOLUME 87.5 fL (81-99); MONOCYTES # (AUTO) 0.6 (0.2-0.8); MONOCYTES % 7.7 % (4.4-11.3); NEUTROPHILS # (AUTO) 5.3 (2.1-6.9); NEUTROPHILS % 64.7 % (38.7-80.0); PLATELET COUNT 187 x10e3/uL (140-360); RED BLOOD COUNT 4.41 x10e6/uL (4.3-5.7); RED CELL DISTRIBUTION WIDTH 13.8 % (11.7-14.4)
[2019-01-01 05:52] LABS: ANION GAP 9.4 mmol/L (8-16); BLOOD UREA NITROGEN 17 mg/dL (7-26); BUN/CREATININE RATIO 20 (6-25); CALCIUM 8.7 mg/dL (8.4-10.2); CARBON DIOXIDE 29 mmol/L (22-29); CHLORIDE 102 mmol/L (98-107); CHOL/HDL RATIO 5.4 (3.9-4.7); CHOLESTEROL 189 MD/DL (0-199); CREATININE, SERUM 0.86 mg/dL (0.72-1.25); EST GLOMERULAR FILTRATION RATE > 60 ML/MIN (60-); GLUCOSE 103 mg/dL (74-118); HDL CHOLESTEROL 35 MG/DL (40-60); LDL CHOLESTEROL 119 MG/DL (60-130); POTASSIUM 3.4 mmol/L (3.5-5.1); SODIUM 137 mmol/L (136-145); TRIGLYCERIDES 174 MG/DL (0-149)
[2019-01-01] MEDS: NITROGLYCERIN 2% OINT 1 GM PKT TOP SCH ×4 (06:13→23:53)
[2019-01-01] MEDS: FAMOTIDINE 20 MG TAB PO SCH ×2 (06:13→17:56)
--- NOTE | 2019-01-01 08:03 | NUR ---
PRIMARY CARE PHYSICIAN: Alejandro Talavera MD. CHIEF COMPLAINT: CP HISTORY OF PRESENT ILLNESS: This is a 43-year-old man, with hx Systolic CHF and A.fib, now with chest pain. PAST MEDICAL HISTORY: Hypertension, Systolic CHF, PAF, HTN, Morbid obesity BMI 45.1, DM2, rhabdomyolysis, subclinical hypothyroidism PAST SURGICAL HISTORY: None. ALLERGIES: PER ELECTRONIC MEDICAL RECORD. FAMILY HISTORY: Congestive heart failure. SOCIAL HISTORY: Patient is , has 3 children. No alcohol, illicit, or cigarette. 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 MEDICATIONS: Per electronic medical record. REVIEW OF SYSTEMS: Denies any fevers, chills, sweats, nausea, vomiting, diarrhea, headache, back pain, or vision changes. Denies any leg pain. PHYSICAL EXAMINATION VITAL SIGNS: reviewed. GENERAL: A tired-appearing man, resting in bed. HEENT: Anicteric. Pupils react to light. No oral lesions. CARDIOVASCULAR: Normal S1, S2. Irregular rhythm. LUNGS: Moderate breath sounds, slightly reduced at the bases. ABDOMEN: Soft, nontender, nondistended. EXTREMITIES: 2+ leg edema B/L SKIN: Dry. PSYCHIATRIC: Flat affect. NEUROLOGIC: Alert and oriented x3. Moves all extremities. LABS: Reviewed. ASSESSMENT: A 43-year-old man with Atypical CP PAF Systolic CHF HTN Morbid Obesity BMI 45.1 HLD DM2 Hypokalemia PLAN Cardiac enzymes; echo; cardio eval cont home meds replace K pepcid on AC Alejandro Talavera MD, PhD.
[2019-01-01] MEDS: LISINOPRIL 10 MG TAB PO SCH (09:00)
--- NOTE | 2019-01-01 09:26 | Consultation ---
DATE OF CONSULTATION: Cardiology Consultation CHIEF COMPLAINT: The patient is a 43-year-old with chest pain. HISTORY OF PRESENT ILLNESS: The patient is a 43-year-old, who came to the emergency room with some feeling of irregular heartbeat and a sharp left-sided chest pain. The patient has been observed overnight on telemetry and is feeling better. The patient's cardiac enzymes are negative. The patient did have a cardiac catheterization done five months ago, which demonstrated normal coronary arteries. PAST MEDICAL HISTORY: Significant for: 1. Chronic atrial fibrillation. 2. Hypertension. MEDICATIONS: At home include: 1. Furosemide. 2. Lisinopril. 3. Metoprolol. 4. Xarelto. SOCIAL HISTORY: The patient does not drink, does not smoke. FAMILY HISTORY: There is a strong family history of heart disease. PHYSICAL EXAMINATION: GENERAL: The patient is a well-developed, well-nourished male in no obvious distress. VITAL SIGNS: Included a temperature of 96.2, blood pressure of 124/72, and pulse is 62. HEAD, EARS, EYES, NOSE, AND THROAT: The patient's cranium was normocephalic and atraumatic. Extraocular muscles were intact. Sclerae were anicteric. Pupils were equal, round, reactive to light. There is no pallor or cyanosis of the oral mucosa. There is no erythema or edema in the throat. NECK: Supple. No jugular venous distention. No carotid bruits. CHEST: Clear to auscultation and percussion. CARDIAC: Demonstrated normal S1 and S2 with a short 2/6 systolic murmur. ABDOMEN: Demonstrated good bowel sounds. No tenderness and no masses. EXTREMITIES: There is no clubbing, no cyanosis, and no edema. NEUROLOGICAL: The patient was alert and oriented x3. Cranial nerves II through XII were intact. Motor strength was +5/+5 in all limbs. IMAGING DATA: The patient's EKG demonstrated atrial fibrillation with a controlled ventricular response. IMPRESSION: The patient is a 43-year-old with symptomatic atrial fibrillation. RECOMMENDATIONS: As follows: 1. The patient should remain on Xarelto and metoprolol. 2. I have discussed the option of the possible cardioversion with the patient. 3. I have discussed possible ablation with the patient and I feel this may be preferable to a cardioversion. 4. I have recommended to the patient that to see the duty officer as an outpatient to discuss ablation. MD CAL Pan/IGNACIO /[id number] cc: Alejandro Talavera MD
[2019-01-01] MEDS: RIVAROXABAN 20 MG TABLET PEG SCH (09:48)
[2019-01-01] MEDS: METOPROLOL TARTRATE 25 MG TAB PO SCH ×2 (09:48→17:41)
[2019-01-01] MEDS: ASPIRIN 81 MG ENTERIC COATED PO SCH (09:48)
[2019-01-01] MEDS: FUROSEMIDE 40 MG TAB PO SCH (09:48)
[2019-01-01 12:28] LABS: CREATINE KINASE MB 3.3 ng/mL (0-5.0)
--- NOTE | 2019-01-01 15:50 | NUR ---
Visit made by the Spiritual Care Department Pastoral Visitor, Rachel Hamilton. PV provided pastoral presence, prayer, hospitality, and supportive listening. Pastoral Visitor informed pt/family of the scope of [employer] Clerk Services and availability. DELMY GEORGE Group Art Supervisor Spiritual Care Department O: [phone] Pager: [phone] ([phone] calling from)
--- NOTE | 2019-01-01 19:06 | NUR ---
Received bedside shift report from AM RN. Patient is sitting on the chair, call light within reach The bed is set low, side rails up x2 with no signs of distress.
[2019-01-01] MEDS: SODIUM CHLORIDE 0.9% 1000ML 1,000 ML IV SCH (21:56)
[2019-01-02] VITALS: BP 148/81
[2019-01-02 04:00] VITALS: BP 120/75
[2019-01-02] MEDS: FAMOTIDINE 20 MG TAB PO SCH (06:38)
[2019-01-02] MEDS: NITROGLYCERIN 2% OINT 1 GM PKT TOP SCH (06:38)
--- NOTE | 2019-01-02 06:50 | NUR ---
Discharge summary: Principal Dx: Atypical CP Secondary dx: PAF Systolic CHF HTN Morbid Obesity BMI 45.1 HLD DM2 Hypokalemia PLAN Cardiac enzymes; echo; cardio eval cont home meds replace K pepcid on AC Hba1c 6.1, LDL 119. Had heartt cath <6mths ago. Cardiac enzymes negative. Cleared by cardiology. d/c home; uptitrate cholesterol medicine. f/u pcp 1 week and cardio 1 week stable d/c>35mins Alejandro Talavera MD, PhD.
[2019-01-02] MEDS ORDERED: LIPITOR20 MG PO (06:51)
--- NOTE | 2019-01-02 06:53 | NUR ---
D/C Summary Addendum LVEF 45-50% Discharge summary: Principal Dx: Atypical CP HFpEF Secondary dx: PAF Systolic CHF HTN Morbid Obesity BMI 45.1 HLD DM2 Hypokalemia PLAN Cardiac enzymes; echo; cardio eval cont home meds replace K pepcid on AC Hba1c 6.1, LDL 119. Had heartt cath <6mths ago. Cardiac enzymes negative. Cleared by cardiology. d/c home; uptitrate cholesterol medicine. f/u pcp 1 week and cardio 1 week stable d/c>35mins Alejandro Talavera MD, PhD.
[2019-01-02 07:25] VITALS: BP 120/80
--- NOTE | 2019-01-02 07:58 | NUR ---
spoke with md marcos regarding clarification on dc home meds. pt states md started him on dig and losartan and told him to stop lisinopril when speaking with md marcos , states "tell pt to start back him home meds, he knows what he takes" asked md once again what medications those were to update dc information md again states "pt knows what he takes"
[2019-01-02 08:00] VITALS: BP 120/80
[2019-01-02] MEDS: METOPROLOL TARTRATE 25 MG TAB PO SCH (08:14)
[2019-01-02] MEDS: FUROSEMIDE 40 MG TAB PO SCH (08:14)
[2019-01-02] MEDS: LISINOPRIL 10 MG TAB PO SCH (08:14)
[2019-01-02] MEDS: RIVAROXABAN 20 MG TABLET PEG SCH (08:14)
[2019-01-02] MEDS: ASPIRIN 81 MG ENTERIC COATED PO SCH (08:14)
--- NOTE | 2019-01-02 08:15 | NUR ---
DC INSTRUCTIONS AND PRESCRIPTIONS GIVEN. PT VERBALIZED UNDERSTANDING IV DC PRESSURE DRESSING APPLIED AND TAPED PT IS READY FOR DC
[2019-01-02] MEDS ORDERED: ONDANSETRON HCL 4 MG ORAL DISINTEGRATING TAB PO PRN (08:45)
== END 2019-01-02 08:37 | disposition home or self-care (01) ==
LOC: ER 15:12 → ERHOLD 18:04 → MED/SURG 19:30
PROVIDERS: ADMIT Internal Medicine; ATTEND Internal Medicine
DX: R07.89 Other chest pain (principal); I48.2 Chronic atrial fibrillation; I11.0 Hypertensive heart disease with heart failure; I25.10 Atherosclerotic heart disease of native coronary artery without angina pectoris; K58.9 Irritable bowel syndrome, unspecified; Z87.442 Personal history of urinary calculi; Z88.0 Allergy status to penicillin; Z82.49 Family history of ischemic heart disease and other diseases of the circulatory system; R94.31 Abnormal electrocardiogram [ECG] [EKG]; Z79.01 Long term (current) use of anticoagulants; I50.20 Unspecified systolic (congestive) heart failure; E66.01 Morbid (severe) obesity due to excess calories; Z68.42 Body mass index [BMI] 45.0-49.9, adult; E11.9 Type 2 diabetes mellitus without complications; E02 Subclinical iodine-deficiency hypothyroidism; E87.6 Hypokalemia; E78.5 Hyperlipidemia, unspecified
CPT/HCPCS: 36415 ×2; 71045; 80048; 80053; 80061; 81001; 82550 ×2; 82553 ×2; 83036; 83880; 84484 ×2; 85025 ×2; 85610; 85730; 93005; 93306; 99284; G0378 ×3; J7030 ×2